=== PATIENT | female | born 1990 | race Caucasian/White ===

== ENCOUNTER 2018-02-25 05:03 | Day surgery (SDC) | payer OTHER ==
[2018-02-23 12:32] VITALS: BMI 23.6
[2018-02-25] MEDS ORDERED: MIDAZOLAM HCL 2 MG/2 ML SINGLE DOSE VIAL ONE ×2 (10:33)
[2018-02-25] MEDS ORDERED: IBUPROFEN 400 MG TABLET (FP) PO PRN (10:36)
[2018-02-25] MEDS ORDERED: ACETAMINOPHEN 325 MG TABLET (FP) PO PRN (10:36)
[2018-02-25] MEDS ORDERED: ONDANSETRON 4 MG/2 ML VIAL IVPUSH PRN (10:36)
[2018-02-25] MEDS ORDERED: oxyCODONE HCL 5 MG TABLET PO PRN (10:36)
--- NOTE | 2018-02-25 10:42 | HP ---
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 for colposcopy and LEEP History Source: Patient Limitations to Obtaining History: No Limitations - Past Medical History Cardiovascular: No: HTN Pulmonary: No: Asthma ...LMP: 02/10/18 ...: 0 ...Para: 0 Heme/Onc: No: Anemia - Past Surgical History Past Surgical History: Yes: Tonsillectomy - Smoking History Smoking history: Never smoked Have you smoked in the past 12 months: No - Alcohol/Substance Use Hx Alcohol Use: Yes (rarely) History of Substance Use: reports: None - Social History Usual Living Arrangement: Yes: With Parent History of Recent Travel: No Home Medications - Allergies Allergies/Adverse Reactions: Allergies Allergy/AdvReac Type Severity Reaction Status Date / Time No Known Drug Allergies Allergy Verified 02/23/18 12:37 - Home Medications Home Medications: Ambulatory Orders Loratadine [Claritin] 10 mg PO PRN PRN 02/23/18 Family Disease History - Family Disease History Family History: Denies Review of Systems - Review of Systems Constitutional: reports: No Symptoms Neck: reports: No Symptoms Cardiovascular: reports: No Symptoms Respiratory: reports: No Symptoms Genitourinary: reports: No Symptoms Musculoskeletal: reports: No Symptoms Integumentary: reports: No Symptoms Neurological: reports: No Symptoms Endocrine: reports: No Symptoms Psychiatric: reports: No Symptoms Physical Examination Vital Signs: Vital Signs Temperature 98.0 F 02/25/18 09:48 Pulse Rate 93 H 02/25/18 09:48 Respiratory Rate 20 02/25/18 09:48 Blood Pressure 107/61 02/25/18 09:48 O2 Sat by Pulse Oximetry (%) 99 02/25/18 09:49 Constitutional: Yes: Well Nourished, No Distress, Calm Cardiovascular: Yes: Regular Rate and Rhythm Respiratory: Yes: Regular, CTA Bilaterally Gastrointestinal: Yes: Normal Bowel Sounds, Soft Renal/: Yes: WNL Breast(s): Yes: WNL Musculoskeletal: Yes: WNL Edema: No Integumentary: Yes: WNL Neurological: Yes: WNL Psychiatric: Yes: WNL Assessment/Plan 27 G0 hx/o BENJAMIN 2/High Grade Dysplasia for colposcopy / LEEP 1. Consents reviewed and signed 2. Preop labs reviewed 3. SCDs for DVT prophylaxis 4. Proceed to OR
[2018-02-25] MEDS ORDERED: SUCCINYLCHOLINE CHLORIDE 200 MG/10 ML VIAL ONE (10:48)
[2018-02-25] MEDS ORDERED: PROPOFOL 20 ML ONE (10:48)
[2018-02-25] MEDS ORDERED: ceFAZolin SODIUM 1 GM VIAL IVPB ONE (10:50)
--- NOTE | 2018-02-25 11:32 | OP ---
Operative Note - Note: Operative Date: 02/25/18 Pre-Operative Diagnosis: High Grade Cervical Dysplasia / BENJAMIN 2 Operation: LEEP, colposcopy Findings: lesion noted at 9-12; lesion noted at 4-7, IUD in place Post-Operative Diagnosis: Same as Pre-op Surgeon: Kandy Cook Anesthesiologist/CRYSTAL LAPPER: Dejah Fiore MD Anesthesia: General Estimated Blood Loss (mls): 2 Fluid Volume Replaced (mls): 1,000 Operative Report Dictated: Yes
[2018-02-25 12:25] VITALS: TEMP 97.8
[2018-02-25 14:13] VITALS: BP 97/64; PULSE 78
--- NOTE | 2018-02-25 14:52 | OP ---
DATE OF OPERATION: 02/25/2018 ATTENDING PHYSICIAN: Ankit Cook MD PREOPERATIVE DIAGNOSIS: High-grade cervical dysplasia, cervical intraepithelial neoplasia 2. POSTOPERATIVE DIAGNOSIS: High-grade cervical dysplasia, cervical intraepithelial neoplasia 2. ANESTHESIA: General with Dr. Fiore. ESTIMATED BLOOD LOSS: 2 mL FLUIDS GIVEN: 1 L INDICATIONS: The patient is a 27-year-old with biopsy-proven BENJAMIN 2 high-grade cervical dysplasia who opted for surgical intervention with a loop excisional electrosurgical procedure. She was counseled regarding the risks, benefits, alternatives and complications of procedure including infection, bleeding, and damage to surrounding organs. She has an IUD in place. She was counseled regarding risk of cutting the IUD strings and she consented to procedure. PROCEDURE IN DETAIL: When anesthesia was found to be adequate, the patient was prepped and draped in the normal sterile fashion and placed in the dorsal lithotomy position using Gunner stirrups. A coated speculum was placed in the patient's vagina. A colposcopy was performed with application of acetic acid and Lugol solution. Two lesions were noted. The LEEP procedure was then performed using a 1 x 1 cm loop and the cervix was biopsied in 2 parts at 12 o'clock and at 6 o'clock with extra care to remove an extra area at the internal os at 6 o'clock and the external biopsy at 12 o'clock. ECC was performed. Bovie electrocautery using a roller ball was applied to the cervical bed with good hemostasis noted and Surgicel was applied on the cervical bed and all instruments were removed from the patient's vagina. The patient was awoken from anesthesia, brought to the recovery room in stable condition. ANKIT COOK M.D. [id number]
--- NOTE | 2018-02-27 20:44 | PATH ---
Surgical Pathology Report Patient Name: BOB RENE [facility]. Rec. #: [id number] /Age/Gender: 1990 (Age: 27) / F Account: [id number] Location: [facility] SURGICAL Taken: 02/25/2018 Received: 02/25/2018 Reported: 02/27/2018 Physicians: Kandy Cook Specimen(s) Received A: CERVICAL BIOPSY AT 6:00 B: CERVICAL BIOPSY AT 12:00 C: INTERNAL OS AT 6:00 D: ENDOCERVICAL CURETTINGS Clinical History High-grade dysplasia Final Diagnosis A. CERVICAL, 6:00, BIOPSY: CERVICAL SQUAMOUS AND ENDOCERVICAL MUCOSA WITH LOW GRADE SQUAMOUS INTRAEPITHELIAL LESION (LSIL), EXTENDING TO INKED SURGICAL MARGINS. CHRONIC FOLLICULAR CERVICITIS. NO HIGH GRADE DYSPLASIA IDENTIFIED. TRANSFORMATION ZONE: PRESENT. B. CERVICAL, 12:00, BIOPSY: CERVICAL SQUAMOUS AND ENDOCERVICAL MUCOSA WITH HIGH GRADE SQUAMOUS INTRAEPITHELIAL LESION (CERVICAL INTRAEPITHELIAL NEOPLASIA 2/ BENJAMIN 2) WITH FOCAL GLANDULAR INVOLVEMENT; AREAS OF LOW GRADE SQUAMOUS INTRAEPITHELIAL LESION PRESENT. SURGICAL MARGINS: POSITIVE FOR HIGH GRADE DYSPLASIA. TRANSFORMATION ZONE: PRESENT. C. INTERNAL OS, 6:00, BIOPSY: SCANT DETACHED FRAGMENTS OF DYSPLASTIC SQUAMOUS EPITHELIUM AND FRAGMENTS OF ENDOCERVICAL MUCOSA WITH FOCAL CAUTERY ARTIFACT. SEE COMMENT. D. ENDOCERVICAL CURETTINGS, DILATION AND CURETTAGE: SCANT ENDOCERVICAL TISSUE ADMIXED WITH MUCUS. SEE COMMENT. Comment: Immunohistochemical stains performed at [place], [place] ([id number]) and interpreted at [facility] show p16 is strong and diffusely positive in HSIL, while LSIL shows patchy weak staining. Proliferative marker, [id number] was utilized to evaluate this case. Part C, although the patchy weak staining of p16 in the scant dysplastic squamous epithelium favors a low grade lesion, the detached and fragmented nature of the specimen, precludes definitive grading of the dysplasia. Part D, p16 shows rare staining within the endocervical mucosa. A cauterized fragment shows strong and positive staining wherein involvement by dysplasia cannot be completely excluded. Electronically Signed Anayeli Mary M.D. Gross Description A. Received in formalin labeled "cervical biopsy at 6:00," is a 1.7 x 0.7 x 0.4 cm irregular, unoriented portion of soft tissue, consistent with a cervical biopsy. The specimen is partially surfaced by a brower-pink, shiny and glistening mucosa. The base is inked blue and the specimen is serially sectioned. The specimen is entirely submitted in 2 cassettes. B. Received in formalin labeled "cervical biopsy at 12:00," are 2 irregular, unoriented portions of soft tissue measuring 0.7 x 0.4 x 0.2 cm and 1.8 x 0.8 x 0.5 cm. Both specimens are partially surfaced by a brower-pink, shiny and glistening mucosa. The specimens are inked blue and serially sectioned. The specimens are entirely submitted in 3 cassettes as follows: 1-smaller portion of tissue; 2-3-larger portion of tissue. C. Received in formalin labeled "internal os at 6:00," is a 1.1 x 0.3 x 0.2 cm brower, irregular, unoriented portion of soft tissue, consistent with a portion of cervix. The specimen is inked blue and serially sectioned. The specimen is entirely submitted in one cassette. D. Received in formalin labeled "endocervical curettings," is a 0.4 x 0.4 x 0.2 cm aggregate of blood-tinged mucus, possibly containing soft tissue fragments. The formalin is filtered and the specimen is entirely submitted in one cassette. 02/25/2018 [facility]02/25/2018
== END 2018-02-25 13:10 | disposition home or self-care (01) ==
LOC: JASU-SURG 05:03
PROVIDERS: ATTEND Obstetrics & Gynecology
PROC: 0UBC7ZX Excision of Cervix, Via Natural or Artificial Opening, Diagnostic (ICD-10-PCS; principal; 2018-02-25 11:00)
DX: N87.1 Moderate cervical dysplasia (principal)
CPT/HCPCS: 84703; 86850; 86900; 86901; 88305-TC; 94760